=== PATIENT | female | born 1980 | race Caucasian/White ===

== ENCOUNTER 2018-06-04 19:17 | Inpatient (IN) | payer MEDICAID, OTHER ==
[~2018-06-04] VITALS: Ht 167.6 cm; Wt 129.0 kg
[2018-06-04] MEDS ORDERED: ONDANSETRON ODT 4 MG TAB PO ONE (19:45)
[2018-06-04 22:03] LABS: Basophils # (auto) 0 uL; Basophils % (auto) 0.3 % (0.0-2.0); Eosinophils # (auto) 0.3 uL; Eosinophils % (auto) 2.7 % (0.0-7.0); Hemoglobin 12.9 g/dL (12.2-16.2); Lymphocytes # (auto) 3.5 uL; Lymphocytes % (auto) 29.3 % (10.0-50.0); Mean Corpuscular Hemoglobin 32.4 pg (28.0-32.0); Mean Corpuscular Hgb Conc. 33.2 g/dL (32.0-36.0); Mean Corpuscular Volume 97.7 fL (80.0-100.0); Monocytes # (auto) 0.6 uL; Monocytes % (auto) 5.2 % (0.0-12.0); Neutrophils # (auto) 7.5 uL; Neutrophils % (auto) 62.5 % (37.0-80.0); Nucleated Red Blood Cells % 0.1 %; Platelet Count (auto) 329 10^3/uL (140-450); Red Blood Cells 3.99 10^6/uL (4.0-5.20); Red Cell Distribution Width 13.5 % (11.8-14.3)
[2018-06-04 22:23] LABS: Albumin 1.2 g/dL (3.4-5.0); BUN/Creatinine Ratio 10.8; Bilirubin, Total 0.1 mg/dL (0.2-1.0); Calcium 8.1 mg/dL (8.5-10.1); Potassium 3.7 mmol/L (3.5-5.1); Total Protein 5.9 g/dL (6.4-8.2)
[2018-06-05] MEDS ORDERED: ACETAMINOPHEN 325 MG TAB PO PRN (06:15)
[2018-06-05] MEDS ORDERED: NITROGLYCERIN 0.4 MG SL TAB SL PRN (06:15)
[2018-06-05] MEDS ORDERED: cloNIDine HCL 0.1 MG TAB PO PRN (06:15)
[2018-06-05] MEDS ORDERED: MORPHINE SULF INJ 2 MG/ML SYRINGE 1ML IV PRN (06:15)
[2018-06-05] MEDS ORDERED: TEMAZEPAM 15 MG CAP PO PRN (06:15)
[2018-06-05] MEDS ORDERED: ETOD200C27 PO (06:58)
[2018-06-05] MEDS ORDERED: LAMO200T34 PO (06:58)
[2018-06-05] MEDS ORDERED: TOPI100T29 PO (06:58)
[2018-06-05] MEDS: SODIUM CHLORIDE 0.9% 1,000 ML IV SCH ×2 (08:13→20:10)
[2018-06-05] MEDS ORDERED: ENOXAPARIN SOD 120 MG/0.8 ML SYRINGE SC ONE (08:45)
[2018-06-05] MEDS: ONDANSETRON HCL 4 MG/2 ML VIAL IV PRN ×4 (09:34→22:21)
[2018-06-05] MEDS: PANTOPRAZOLE 40 MG TAB PO SCH (09:35)
[2018-06-05] MEDS: lamoTRIgine 100 MG TAB PO SCH ×2 (09:35→22:21)
[2018-06-05 13:00] VITALS: BP_SYST 109; BP_SYST 143; BP_DIAS 69; BP_DIAS 93
[2018-06-05] MEDS: HYDROcodone-ACET 5/325MG TAB PO PRN ×2 (13:39→22:31)
[2018-06-05 15:16] LABS: Urine Bacteria FEW /hpf (None Seen); Urine Blood 2+ /uL (Negative); Urine Hyaline Cast MOD /lpf (0 - 2); Urine Mucus FEW (None Seen); Urine Specific Gravity 1.032 (1.001-1.035); Urine WBC <1 /hpf (0 - 5)
[2018-06-05 15:18] LABS: Amylase 58 U/L (25-115); INR 0.89 (0.9-1.15); Lipase 215 U/L (73-393); Partial Thromboplastin Time 36.6 sec (23.78-33.04); Prothrombin Time 9.6 sec (9.27-12.13)
[2018-06-05 17:00] VITALS: BP 158/81
[2018-06-05] MEDS ORDERED: WARFARIN SODIUM 5 MG TAB PO ONE (17:00)
[2018-06-05 20:00] VITALS: BP 148/78
[2018-06-05 22:00] VITALS: BP 148/78
[2018-06-05] MEDS: TOPIRAMATE 100 MG TAB PO SCH (22:21)
[2018-06-05] MEDS: guaiFENesin 200 MG/10 ML UD PO PRN (23:55)
[2018-06-06] VITALS (7 sets, daily range): BP systolic 131–155; BP diastolic 77–99
[2018-06-06 05:58] LABS: Basophils # (auto) 0 uL; Basophils % (auto) 0.4 % (0.0-2.0); Eosinophils # (auto) 0.4 uL; Eosinophils % (auto) 4.5 % (0.0-7.0); Hematocrit 33.6 % (36.0-46.0); Hemoglobin 11.2 g/dL (12.2-16.2); Lymphocytes # (auto) 2.9 uL; Lymphocytes % (auto) 32.4 % (10.0-50.0); Mean Corpuscular Hemoglobin 32.8 pg (28.0-32.0); Mean Corpuscular Hgb Conc. 33.4 g/dL (32.0-36.0); Mean Corpuscular Volume 98.3 fL (80.0-100.0); Monocytes # (auto) 0.6 uL; Monocytes % (auto) 6.9 % (0.0-12.0); Neutrophils % (auto) 55.8 % (37.0-80.0); Nucleated Red Blood Cells % 0.1 %; Platelet Count (auto) 249 10^3/uL (140-450); Red Blood Cells 3.42 10^6/uL (4.0-5.20); Red Cell Distribution Width 13.7 % (11.8-14.3); White Blood Cell 8.9 10^3/uL (4.4-10.8)
[2018-06-06 06:13] LABS: BUN/Creatinine Ratio 10.1; Bilirubin, Total 0.2 mg/dL (0.2-1.0); Calcium 7.3 mg/dL (8.5-10.1); Potassium 4.1 mmol/L (3.5-5.1); Total Protein 4.8 g/dL (6.4-8.2)
[2018-06-06 06:31] LABS: INR 0.87 (0.9-1.15); Partial Thromboplastin Time 34.3 sec (23.78-33.04); Prothrombin Time 9.4 sec (9.27-12.13)
[2018-06-06] MEDS: SODIUM CHLORIDE 0.9% 1,000 ML IV SCH (09:00)
[2018-06-06] MEDS: PANTOPRAZOLE 40 MG TAB PO SCH (09:37)
[2018-06-06] MEDS: lamoTRIgine 100 MG TAB PO SCH ×2 (09:37→21:57)
[2018-06-06] MEDS: ENOXAPARIN SOD 120 MG/0.8 ML SYRINGE SC SCH (09:39)
[2018-06-06] MEDS: ONDANSETRON HCL 4 MG/2 ML VIAL IV PRN ×4 (09:39→22:27)
[2018-06-06] MEDS: HYDROcodone-ACET 5/325MG TAB PO PRN ×2 (12:50→20:11)
[2018-06-06] MEDS: guaiFENesin 200 MG/10 ML UD PO PRN ×2 (13:49→22:27)
[2018-06-06] MEDS ORDERED: BUMETANIDE (0.25 MG/ML) INJ 10ML IV ONE (14:45)
[2018-06-06 15:56] LABS: Urine Amorphous Crystal MANY /hpf (None Seen); Urine Bacteria FEW /hpf (None Seen); Urine Blood 2+ /uL (Negative); Urine Specific Gravity 1.019 (1.001-1.035); Urine WBC 22 /hpf (0 - 5)
[2018-06-06] MEDS: TOPIRAMATE 100 MG TAB PO SCH (21:57)
[2018-06-07] VITALS (8 sets, daily range): BP systolic 133–148; BP diastolic 75–86
[2018-06-07] MEDS: lamoTRIgine 100 MG TAB PO SCH ×2 (09:20→21:57)
[2018-06-07] MEDS: PANTOPRAZOLE 40 MG TAB PO SCH (09:20)
[2018-06-07] MEDS: ENOXAPARIN SOD 120 MG/0.8 ML SYRINGE SC SCH (09:21)
[2018-06-07] MEDS: HYDROcodone-ACET 5/325MG TAB PO PRN ×2 (09:21→18:54)
[2018-06-07] MEDS: ONDANSETRON HCL 4 MG/2 ML VIAL IV PRN ×3 (09:32→19:30)
[2018-06-07] MEDS: guaiFENesin 200 MG/10 ML UD PO PRN ×2 (09:32→21:59)
[2018-06-07 09:38] LABS: Basophils # (auto) 0 uL; Basophils % (auto) 0.3 % (0.0-2.0); Eosinophils # (auto) 0.4 uL; Eosinophils % (auto) 5.4 % (0.0-7.0); Hematocrit 35.6 % (36.0-46.0); Hemoglobin 11.8 g/dL (12.2-16.2); Lymphocytes # (auto) 2.2 uL; Lymphocytes % (auto) 29.4 % (10.0-50.0); Mean Corpuscular Hemoglobin 32.2 pg (28.0-32.0); Mean Corpuscular Hgb Conc. 33.2 g/dL (32.0-36.0); Mean Corpuscular Volume 97.2 fL (80.0-100.0); Monocytes # (auto) 0.4 uL; Monocytes % (auto) 5.6 % (0.0-12.0); Neutrophils # (auto) 4.5 uL; Neutrophils % (auto) 59.3 % (37.0-80.0); Platelet Count (auto) 273 10^3/uL (140-450); Red Blood Cells 3.66 10^6/uL (4.0-5.20); Red Cell Distribution Width 13.2 % (11.8-14.3); White Blood Cell 7.5 10^3/uL (4.4-10.8)
[2018-06-07 09:44] LABS: Protein, Urine 3538.5 mg/dL (0.0-11.9)
[2018-06-07 09:46] LABS: INR 0.87 (0.9-1.15); Prothrombin Time 9.4 sec (9.27-12.13)
[2018-06-07 09:58] LABS: Alanine Aminotransferase 10 U/L (13-56); Alkaline Phosphatase 79 U/L (45-117); Anion Gap 10 (5-15); Aspartate Aminotransferase 11 U/L (15-37); BUN/Creatinine Ratio 9.4; Bilirubin, Direct < 0.1 mg/dL (0-0.2); Bilirubin, Total 0.1 mg/dL (0.2-1.0); Blood Urea Nitrogen 48 mg/dL (7-18); Calcium 7.5 mg/dL (8.5-10.1); Carbon Dioxide 19 mmol/L (21-32); Chloride 110 mmol/L (98-107); Cholesterol 388 mg/dL (< 200); GFR African American 12 mL/min; GFR Non-African American 10 mL/min; Glucose 72 mg/dL (74-106); HDL Cholesterol 49 mg/dL (40-59); LDL Cholesterol 289 mg/dL (< 100); Phosphorus 5.9 mg/dL (2.5-4.90); Potassium 3.9 mmol/L (3.5-5.1); Sodium 139 mmol/L (136-145); Triglycerides 253 mg/dL (< 150); Uric Acid 6.2 mg/dL (2.6-6.0)
[2018-06-07] MEDS ORDERED: AZITHROMYCIN 250 MG TAB PO ONE (10:00)
[2018-06-07 10:23] LABS: % Iron Saturation 90.3 % (15-50)
[2018-06-07 11:46] LABS: Free T4 (Free Thyroxine) 0.63 ng/dL (0.89-1.76)
[2018-06-07 11:47] LABS: Free T3 1.87 pg/mL (2.3-4.2)
[2018-06-07] MEDS: ALBUTEROL SULF 2.5 MG/0.5ML(0.5%) NEB SOLN NEB SCH ×3 (11:58→23:37)
[2018-06-07] MEDS: ERGOCALCIFEROL 50,000 UNIT(1.25MG) CAP PO SCH (14:48)
[2018-06-07] MEDS: BUMETANIDE INJECTION 12.5 MG in GIVE UN-DILUTED 0 ML IV SCH (15:31)
[2018-06-07] MEDS: ATORVASTATIN 20 MG TAB PO SCH (21:57)
[2018-06-07] MEDS: TOPIRAMATE 100 MG TAB PO SCH (21:57)
[2018-06-08] MEDS: HYDROcodone-ACET 5/325MG TAB PO PRN ×4 (02:14→21:36)
[2018-06-08 04:56] VITALS: BP 126/77
[2018-06-08] MEDS: ALBUTEROL SULF 2.5 MG/0.5ML(0.5%) NEB SOLN NEB SCH ×3 (06:07→19:00)
[2018-06-08] MEDS: LEVOTHYROXINE SODIUM 50 MCG TAB PO SCH (06:42)
[2018-06-08 07:00] LABS: INR 0.87 (0.9-1.15); Partial Thromboplastin Time 33.5 sec (23.78-33.04); Prothrombin Time 9.4 sec (9.27-12.13)
[2018-06-08 07:11] LABS: Bilirubin, Total 0.2 mg/dL (0.2-1.0); Calcium 7.6 mg/dL (8.5-10.1); Total Protein 4.9 g/dL (6.4-8.2)
[2018-06-08 08:00] VITALS: BP 127/76
[2018-06-08 09:12] VITALS: BP 127/76
[2018-06-08] MEDS: PANTOPRAZOLE 40 MG TAB PO SCH (10:00)
[2018-06-08] MEDS ORDERED: ENOXAPARIN SOD 120 MG/0.8 ML SYRINGE SC SCH (10:00)
[2018-06-08] MEDS: lamoTRIgine 100 MG TAB PO SCH ×2 (10:36→21:35)
[2018-06-08] MEDS: AZITHROMYCIN 250 MG TAB PO SCH (10:36)
[2018-06-08 12:54] VITALS: BP 126/71
[2018-06-08] MEDS: ONDANSETRON HCL 4 MG/2 ML VIAL IV PRN ×2 (13:01→18:34)
[2018-06-08] MEDS ORDERED: methylPREDNISolone SOD SUCC 1,000 MG in SODIUM CHL 0.9% 250 ML IV ONE (13:15)
[2018-06-08] MEDS ORDERED: MIDAZOLAM HCL 1MG/1ML-2 ML VIAL ONE (13:49)
[2018-06-08] MEDS ORDERED: fentaNYL CITRATE 100 MCG/2 ML VL ONE (13:49)
[2018-06-08] MEDS: BUMETANIDE INJECTION 12.5 MG in GIVE UN-DILUTED 0 ML IV SCH (14:43)
[2018-06-08 16:36] VITALS: BP 135/76
[2018-06-08 21:30] VITALS: BP 149/83
[2018-06-08] MEDS: TOPIRAMATE 100 MG TAB PO SCH (21:35)
[2018-06-08] MEDS: ATORVASTATIN 20 MG TAB PO SCH (21:35)
[2018-06-09] MEDS: ALBUTEROL SULF 2.5 MG/0.5ML(0.5%) NEB SOLN NEB SCH ×5 (01:05→23:33)
[2018-06-09] MEDS: HYDROcodone-ACET 5/325MG TAB PO PRN ×4 (01:43→23:03)
[2018-06-09 04:55] VITALS: BP 128/76
[2018-06-09 06:04] LABS: INR 0.84 (0.9-1.15); Partial Thromboplastin Time 30.7 sec (23.78-33.04); Prothrombin Time 9.1 sec (9.27-12.13)
[2018-06-09 06:12] LABS: Calcium 7.9 mg/dL (8.5-10.1); Potassium 4.9 mmol/L (3.5-5.1)
[2018-06-09] MEDS: LEVOTHYROXINE SODIUM 50 MCG TAB PO SCH (06:37)
[2018-06-09 09:00] VITALS: BP 134/71
[2018-06-09] MEDS: PANTOPRAZOLE 40 MG TAB PO SCH (09:43)
[2018-06-09] MEDS: lamoTRIgine 100 MG TAB PO SCH ×2 (09:43→21:38)
[2018-06-09] MEDS: AZITHROMYCIN 250 MG TAB PO SCH (09:43)
[2018-06-09 10:44] LABS: Hematocrit 37.2 % (36.0-46.0); Hemoglobin 11.9 g/dL (12.2-16.2); Mean Corpuscular Hemoglobin 31.3 pg (28.0-32.0); Mean Corpuscular Hgb Conc. 31.9 g/dL (32.0-36.0); Mean Corpuscular Volume 98.4 fL (80.0-100.0); Platelet Count (auto) 301 10^3/uL (140-450); Red Blood Cells 3.79 10^6/uL (4.0-5.20); Red Cell Distribution Width 13.3 % (11.8-14.3); White Blood Cell 12.8 10^3/uL (4.4-10.8)
[2018-06-09 11:04] LABS: Basophils % (manual) 0 (0.0-2.0); Blast Cells 0; Eosinophils % (manual) 0 (0-7); Metamyelocytes % 0; Myelocytes % 0; Promyelocytes % 0; Reactive Lymphocytes 0
[2018-06-09 11:23] LABS: Band Neutrophils % (manual) 3; Lymphocytes % (manual) 6 (10.0-50.0); Monocytes % (manual) 2 (0-12)
[2018-06-09] MEDS ORDERED: diphenhdrAMINE HCL 50 MG/1 ML VL IV PRN (11:45)
[2018-06-09 12:52] VITALS: BP 144/85
[2018-06-09] MEDS ORDERED: methylPREDNISolone SOD SUCC 1,000 MG in SODIUM CHL 0.9% 250 ML IV ONE (15:00)
[2018-06-09 17:00] VITALS: BP 150/85
[2018-06-09 20:00] VITALS: BP 145/82
[2018-06-09] MEDS: TOPIRAMATE 100 MG TAB PO SCH (21:39)
[2018-06-09] MEDS: ATORVASTATIN 20 MG TAB PO SCH (21:39)
[2018-06-09 22:30] VITALS: BP 145/82
[2018-06-09] MEDS: ONDANSETRON HCL 4 MG/2 ML VIAL IV PRN (23:03)
[2018-06-10] VITALS (8 sets, daily range): BP systolic 126–191; BP diastolic 59–92
[2018-06-10 05:42] LABS: BUN/Creatinine Ratio 11.4; Potassium 5.2 mmol/L (3.5-5.1)
[2018-06-10] MEDS: ALBUTEROL SULF 2.5 MG/0.5ML(0.5%) NEB SOLN NEB SCH ×3 (06:42→18:55)
[2018-06-10] MEDS: LEVOTHYROXINE SODIUM 50 MCG TAB PO SCH (06:43)
[2018-06-10] MEDS: lamoTRIgine 100 MG TAB PO SCH ×2 (09:26→22:18)
[2018-06-10] MEDS: PANTOPRAZOLE 40 MG TAB PO SCH (09:27)
[2018-06-10] MEDS: AZITHROMYCIN 250 MG TAB PO SCH (09:27)
[2018-06-10] MEDS ORDERED: ENOXAPARIN SOD 120 MG/0.8 ML SYRINGE SC SCH (10:00)
[2018-06-10] MEDS ORDERED: fentaNYL CITRATE 100 MCG/2 ML VL ONE (11:35)
[2018-06-10] MEDS ORDERED: MIDAZOLAM HCL 1MG/1ML-2 ML VIAL ONE (11:35)
[2018-06-10] MEDS ORDERED: LIDOCAINE 2%HCL (LOCAL ANESTH.) INJ 10ml MDV ONE ×2 (11:36→12:16)
[2018-06-10] MEDS ORDERED: HEPARIN SODIUM (PORCINE) 5000 UNITS/ML 1ML VIAL ONE (12:22)
[2018-06-10] MEDS: HYDROcodone-ACET 5/325MG TAB PO PRN ×2 (13:32→19:49)
[2018-06-10] MEDS: ATORVASTATIN 20 MG TAB PO SCH (22:18)
[2018-06-10] MEDS: TOPIRAMATE 100 MG TAB PO SCH (22:19)
[2018-06-11] MEDS: ALBUTEROL SULF 2.5 MG/0.5ML(0.5%) NEB SOLN NEB SCH ×4 (00:55→18:53)
[2018-06-11 00:56] VITALS: BP 145/92
[2018-06-11] MEDS: HYDROcodone-ACET 5/325MG TAB PO PRN ×2 (01:51→06:30)
[2018-06-11 04:48] VITALS: BP 120/68
[2018-06-11 06:14] LABS: BUN/Creatinine Ratio 10.7; Calcium 7.3 mg/dL (8.5-10.1); Potassium 4.3 mmol/L (3.5-5.1)
[2018-06-11] MEDS: LEVOTHYROXINE SODIUM 50 MCG TAB PO SCH (06:29)
[2018-06-11 08:59] VITALS: BP 121/73
[2018-06-11] MEDS: lamoTRIgine 100 MG TAB PO SCH ×2 (09:19→21:07)
[2018-06-11] MEDS: PANTOPRAZOLE 40 MG TAB PO SCH (09:20)
[2018-06-11] MEDS: ONDANSETRON HCL 4 MG/2 ML VIAL IV PRN ×2 (09:38→14:06)
[2018-06-11] MEDS ORDERED: AZITHROMYCIN 250 MG TAB PO SCH (10:00)
[2018-06-11] MEDS ORDERED: HEPARIN SODIUM (PORCINE) 5000 UNITS/ML 1ML VIAL IV ONE (11:15)
[2018-06-11 12:15] LABS: Basophils # (auto) 0 uL; Basophils % (auto) 0.1 % (0.0-2.0); Eosinophils # (auto) 0 uL; Eosinophils % (auto) 0.3 % (0.0-7.0); Hematocrit 37.2 % (36.0-46.0); Hemoglobin 12.3 g/dL (12.2-16.2); Lymphocytes # (auto) 4.7 uL; Lymphocytes % (auto) 33.7 % (10.0-50.0); Mean Corpuscular Hemoglobin 31.5 pg (28.0-32.0); Mean Corpuscular Hgb Conc. 33.1 g/dL (32.0-36.0); Mean Corpuscular Volume 95.2 fL (80.0-100.0); Monocytes # (auto) 1.3 uL; Monocytes % (auto) 8.9 % (0.0-12.0); Platelet Count (auto) 339 10^3/uL (140-450); Red Blood Cells 3.91 10^6/uL (4.0-5.20); Red Cell Distribution Width 13.2 % (11.8-14.3)
[2018-06-11 12:35] LABS: INR 0.88 (0.9-1.15); Partial Thromboplastin Time 26.8 sec (23.78-33.04); Prothrombin Time 9.5 sec (9.27-12.13)
[2018-06-11 13:00] VITALS: BP 119/68
[2018-06-11] MEDS: HEPARIN DRIP/D5W 100UNITS/ML 250 ML IV SCH (13:59)
[2018-06-11 17:00] VITALS: BP 121/71
[2018-06-11] MEDS ORDERED: WARFARIN SODIUM 10 MG TAB PO ONE (18:15)
[2018-06-11] MEDS: ATORVASTATIN 20 MG TAB PO SCH (21:07)
[2018-06-11] MEDS: TOPIRAMATE 100 MG TAB PO SCH (21:08)
[2018-06-11 22:00] VITALS: BP 138/77
[2018-06-12] MEDS: ALBUTEROL SULF 2.5 MG/0.5ML(0.5%) NEB SOLN NEB SCH ×5 (00:23→23:47)
[2018-06-12] MEDS: HEPARIN DRIP/D5W 100UNITS/ML 250 ML IV SCH ×3 (03:05→23:38)
[2018-06-12 03:35] LABS: INR 0.93 (0.9-1.15)
[2018-06-12 03:39] LABS: Partial Thromboplastin Time 78.8 sec (23.78-33.04)
[2018-06-12] MEDS: ONDANSETRON HCL 4 MG/2 ML VIAL IV PRN ×2 (04:49→10:33)
[2018-06-12 05:00] VITALS: BP 128/70
[2018-06-12] MEDS: LEVOTHYROXINE SODIUM 50 MCG TAB PO SCH (06:21)
[2018-06-12 08:25] VITALS: BP 125/72
[2018-06-12 08:53] LABS: Basophils # (auto) 0 uL; Basophils % (auto) 0.2 % (0.0-2.0); Eosinophils # (auto) 0.1 uL; Eosinophils % (auto) 1.3 % (0.0-7.0); Hematocrit 31.2 % (36.0-46.0); Hemoglobin 10.6 g/dL (12.2-16.2); Lymphocytes % (auto) 36.1 % (10.0-50.0); Mean Corpuscular Hemoglobin 32.7 pg (28.0-32.0); Mean Corpuscular Volume 96.4 fL (80.0-100.0); Monocytes # (auto) 0.9 uL; Monocytes % (auto) 8.3 % (0.0-12.0); Neutrophils % (auto) 54.1 % (37.0-80.0); Nucleated Red Blood Cells % 0.1 %; Platelet Count (auto) 219 10^3/uL (140-450); Red Blood Cells 3.24 10^6/uL (4.0-5.20); Red Cell Distribution Width 13.5 % (11.8-14.3)
[2018-06-12 09:03] LABS: BUN/Creatinine Ratio 9.8; Calcium 7.5 mg/dL (8.5-10.1); Potassium 3.7 mmol/L (3.5-5.1)
[2018-06-12 09:13] LABS: INR 0.98 (0.9-1.15); Prothrombin Time 10.5 sec (9.27-12.13)
[2018-06-12] MEDS: lamoTRIgine 100 MG TAB PO SCH ×2 (09:48→21:24)
[2018-06-12] MEDS: FUROSEMIDE 40 MG TAB PO SCH (09:48)
[2018-06-12] MEDS: predniSONE 20 MG TAB PO SCH (09:49)
[2018-06-12] MEDS: PANTOPRAZOLE 40 MG TAB PO SCH (09:49)
[2018-06-12] MEDS: HYDROcodone-ACET 5/325MG TAB PO PRN (12:03)
[2018-06-12 12:30] VITALS: BP 123/73
[2018-06-12 16:39] VITALS: BP 133/87
[2018-06-12] MEDS ORDERED: WARFARIN SODIUM 10 MG TAB PO ONE (17:00)
[2018-06-12] MEDS: ATORVASTATIN 20 MG TAB PO SCH (21:24)
[2018-06-12] MEDS: TOPIRAMATE 100 MG TAB PO SCH (21:25)
[2018-06-12 22:00] VITALS: BP 149/81
[2018-06-13] VITALS (7 sets, daily range): BP systolic 127–148; BP diastolic 71–95
[2018-06-13 05:17] LABS: Basophils # (auto) 0 uL; Basophils % (auto) 0.1 % (0.0-2.0); Eosinophils # (auto) 0 uL; Eosinophils % (auto) 0.1 % (0.0-7.0); Hematocrit 28.8 % (36.0-46.0); Hemoglobin 9.7 g/dL (12.2-16.2); Lymphocytes # (auto) 2.2 uL; Lymphocytes % (auto) 16.9 % (10.0-50.0); Mean Corpuscular Hemoglobin 32.5 pg (28.0-32.0); Mean Corpuscular Hgb Conc. 33.8 g/dL (32.0-36.0); Mean Corpuscular Volume 96.2 fL (80.0-100.0); Monocytes % (auto) 7.7 % (0.0-12.0); Neutrophils # (auto) 9.7 uL; Neutrophils % (auto) 75.2 % (37.0-80.0); Platelet Count (auto) 200 10^3/uL (140-450); Red Cell Distribution Width 13.1 % (11.8-14.3); White Blood Cell 12.9 10^3/uL (4.4-10.8)
[2018-06-13 05:35] LABS: Albumin 0.9 g/dL (3.4-5.0); Anion Gap 9 (5-15); Calcium 7.3 mg/dL (8.5-10.1); Carbon Dioxide 24 mmol/L (21-32); Chloride 104 mmol/L (98-107); Glucose 125 mg/dL (74-106); Sodium 137 mmol/L (136-145)
[2018-06-13 05:40] LABS: INR 1.27 (0.9-1.15); Prothrombin Time 13.4 sec (9.27-12.13)
[2018-06-13 05:41] LABS: Alanine Aminotransferase 18 U/L (13-56); Alkaline Phosphatase 60 U/L (45-117); Aspartate Aminotransferase 9 U/L (15-37); BUN/Creatinine Ratio 10.3; Bilirubin, Total < 0.1 mg/dL (0.2-1.0); Blood Urea Nitrogen 53 mg/dL (7-18); GFR African American 12 mL/min; GFR Non-African American 10 mL/min; Total Protein 4.4 g/dL (6.4-8.2)
[2018-06-13] MEDS: HEPARIN DRIP/D5W 100UNITS/ML 250 ML IV SCH (05:45)
[2018-06-13 05:47] LABS: Partial Thromboplastin Time 79.4 sec (23.78-33.04)
[2018-06-13] MEDS: LEVOTHYROXINE SODIUM 50 MCG TAB PO SCH (06:41)
[2018-06-13] MEDS: ALBUTEROL SULF 2.5 MG/0.5ML(0.5%) NEB SOLN NEB SCH ×3 (07:03→18:36)
[2018-06-13] MEDS ORDERED: SODIUM CHL 0.9% 1000 ML BAG XX ONE (07:15)
[2018-06-13] MEDS ORDERED: EPOETIN ALFA 10,000 UNIT/1 ML VIAL IV ONE (07:15)
[2018-06-13] MEDS: HYDROcodone-ACET 5/325MG TAB PO PRN (07:44)
[2018-06-13 12:20] LABS: INR 1.4 (0.9-1.15); Partial Thromboplastin Time 63.3 sec (23.78-33.04); Prothrombin Time 14.7 sec (9.27-12.13)
[2018-06-13] MEDS: predniSONE 20 MG TAB PO SCH (12:54)
[2018-06-13] MEDS: lamoTRIgine 100 MG TAB PO SCH ×2 (12:54→21:10)
[2018-06-13] MEDS: FUROSEMIDE 40 MG TAB PO SCH (12:55)
[2018-06-13] MEDS: PANTOPRAZOLE 40 MG TAB PO SCH (12:55)
[2018-06-13] MEDS ORDERED: WARFARIN SODIUM 10 MG TAB PO ONE (17:00)
[2018-06-13] MEDS: TOPIRAMATE 100 MG TAB PO SCH (21:09)
[2018-06-13] MEDS: ATORVASTATIN 20 MG TAB PO SCH (21:09)
[2018-06-14] MEDS: ALBUTEROL SULF 2.5 MG/0.5ML(0.5%) NEB SOLN NEB SCH ×4 (00:24→18:11)
[2018-06-14 01:16] LABS: INR 1.72 (0.9-1.15); Partial Thromboplastin Time 58.8 sec (23.78-33.04); Prothrombin Time 17.8 sec (9.27-12.13)
[2018-06-14] MEDS: HEPARIN DRIP/D5W 100UNITS/ML 250 ML IV SCH ×2 (02:35→07:30)
[2018-06-14 04:51] VITALS: BP 150/87
[2018-06-14 06:32] LABS: Hematocrit 31.3 % (36.0-46.0); Hemoglobin 10.6 g/dL (12.2-16.2); Mean Corpuscular Hemoglobin 32.4 pg (28.0-32.0); Mean Corpuscular Hgb Conc. 33.8 g/dL (32.0-36.0); Mean Corpuscular Volume 95.7 fL (80.0-100.0); Platelet Count (auto) 227 10^3/uL (140-450); Red Blood Cells 3.27 10^6/uL (4.0-5.20); Red Cell Distribution Width 13.2 % (11.8-14.3)
[2018-06-14] MEDS: LEVOTHYROXINE SODIUM 50 MCG TAB PO SCH (06:36)
[2018-06-14 06:46] LABS: Basophils % (manual) 0 (0.0-2.0); Blast Cells 0; Eosinophils % (manual) 0 (0-7); Metamyelocytes % 0; Myelocytes % 0; Promyelocytes % 0; Reactive Lymphocytes 0
[2018-06-14 07:45] LABS: Prothrombin Time 20.6 sec (9.27-12.13)
[2018-06-14 07:50] LABS: Partial Thromboplastin Time 76.6 sec (23.78-33.04)
[2018-06-14 08:00] VITALS: BP 127/72
[2018-06-14] MEDS ORDERED: SODIUM CHL 0.9% 1000 ML BAG XX ONE (08:00)
[2018-06-14 08:27] LABS: Band Neutrophils % (manual) 1; Lymphocytes % (manual) 15 (10.0-50.0); Monocytes % (manual) 4 (0-12)
[2018-06-14 09:00] VITALS: BP 133/68
[2018-06-14] MEDS: METOCLOPRAMIDE HCL 5MG/ml INJ 2ml VIAL IV PRN ×2 (10:03→18:42)
[2018-06-14] MEDS: lamoTRIgine 100 MG TAB PO SCH ×2 (10:05→21:19)
[2018-06-14] MEDS: predniSONE 20 MG TAB PO SCH (10:05)
[2018-06-14] MEDS: PANTOPRAZOLE 40 MG TAB PO SCH (10:06)
[2018-06-14] MEDS: FUROSEMIDE 40 MG TAB PO SCH (10:07)
[2018-06-14 13:00] VITALS: BP 148/77
[2018-06-14] MEDS: ERGOCALCIFEROL 50,000 UNIT(1.25MG) CAP PO SCH (13:14)
[2018-06-14 13:22] LABS: INR 2.07 (0.9-1.15); Partial Thromboplastin Time 59.1 sec (23.78-33.04); Prothrombin Time 21.3 sec (9.27-12.13)
[2018-06-14 16:27] VITALS: BP 136/81
[2018-06-14] MEDS ORDERED: WARFARIN SODIUM 5 MG TAB PO ONE (17:00)
[2018-06-14] MEDS: HYDROcodone-ACET 5/325MG TAB PO PRN ×2 (17:07→21:20)
[2018-06-14] MEDS: Pro-Stat SF 30ml Vanilla PO SCH (18:00)
[2018-06-14 19:19] LABS: INR 1.85 (0.9-1.15); Partial Thromboplastin Time 60.6 sec (23.78-33.04); Prothrombin Time 19.1 sec (9.27-12.13)
[2018-06-14] MEDS: ATORVASTATIN 20 MG TAB PO SCH (21:19)
[2018-06-14] MEDS: TOPIRAMATE 100 MG TAB PO SCH (21:20)
[2018-06-14 22:00] VITALS: BP 138/89
[2018-06-15] MEDS: ALBUTEROL SULF 2.5 MG/0.5ML(0.5%) NEB SOLN NEB SCH ×4 (00:05→18:58)
[2018-06-15 01:01] LABS: INR 1.95 (0.9-1.15); Partial Thromboplastin Time 57.2 sec (23.78-33.04); Prothrombin Time 20.1 sec (9.27-12.13)
[2018-06-15 05:00] VITALS: BP 124/71
[2018-06-15 06:30] LABS: Hematocrit 30.5 % (36.0-46.0); Hemoglobin 10.3 g/dL (12.2-16.2); Mean Corpuscular Hemoglobin 32.6 pg (28.0-32.0); Mean Corpuscular Hgb Conc. 33.7 g/dL (32.0-36.0); Mean Corpuscular Volume 96.7 fL (80.0-100.0); Platelet Count (auto) 228 10^3/uL (140-450); Red Blood Cells 3.15 10^6/uL (4.0-5.20); Red Cell Distribution Width 13.5 % (11.8-14.3); White Blood Cell 17.8 10^3/uL (4.4-10.8)
[2018-06-15 06:41] LABS: INR 1.99 (0.9-1.15); Prothrombin Time 20.5 sec (9.27-12.13)
[2018-06-15 06:44] LABS: Basophils % (manual) 0 (0.0-2.0); Blast Cells 0; Metamyelocytes % 0; Myelocytes % 0; Promyelocytes % 0; Reactive Lymphocytes 0
[2018-06-15] MEDS: LEVOTHYROXINE SODIUM 50 MCG TAB PO SCH (06:47)
[2018-06-15 06:48] LABS: Calcium 7.4 mg/dL (8.5-10.1); Potassium 3.3 mmol/L (3.5-5.1)
[2018-06-15 07:40] LABS: Band Neutrophils % (manual) 2; Eosinophils % (manual) 1 (0-7); Lymphocytes % (manual) 23 (10.0-50.0); Monocytes % (manual) 5 (0-12)
[2018-06-15 08:07] VITALS: BP 130/71
[2018-06-15] MEDS ORDERED: SODIUM CHL 0.9% 1000 ML BAG XX ONE (08:15)
[2018-06-15] MEDS: Pro-Stat SF 30ml Vanilla PO SCH ×3 (09:33→17:58)
[2018-06-15] MEDS: FUROSEMIDE 40 MG TAB PO SCH (10:55)
[2018-06-15] MEDS: lamoTRIgine 100 MG TAB PO SCH ×2 (10:56→21:14)
[2018-06-15] MEDS: predniSONE 20 MG TAB PO SCH (10:57)
[2018-06-15] MEDS: PANTOPRAZOLE 40 MG TAB PO SCH (10:57)
[2018-06-15] MEDS ORDERED: POTASSIUM CHL 20 Meq TABLET PO ONE (11:00)
[2018-06-15 12:33] VITALS: BP 147/76
[2018-06-15] MEDS: METOCLOPRAMIDE HCL 5MG/ml INJ 2ml VIAL IV PRN (16:33)
[2018-06-15 16:47] VITALS: BP 132/99
[2018-06-15] MEDS ORDERED: WARFARIN SODIUM 2 MG TAB PO ONE (17:00)
[2018-06-15] MEDS: HYDROcodone-ACET 5/325MG TAB PO PRN (17:55)
[2018-06-15] MEDS: HEPARIN DRIP/D5W 100UNITS/ML 250 ML IV SCH (20:15)
[2018-06-15] MEDS: TOPIRAMATE 100 MG TAB PO SCH (21:14)
[2018-06-15] MEDS: ATORVASTATIN 20 MG TAB PO SCH (21:14)
[2018-06-15 22:25] VITALS: BP 134/84
[2018-06-16] VITALS (7 sets, daily range): BP systolic 112–170; BP diastolic 72–96
[2018-06-16] MEDS: ALBUTEROL SULF 2.5 MG/0.5ML(0.5%) NEB SOLN NEB SCH ×2 (00:27→06:26)
[2018-06-16] MEDS ORDERED: SODIUM CHLORIDE 0.9 % NEB SOLN 3ML NEB ONE (05:36)
[2018-06-16 05:39] LABS: Basophils # (auto) 0 uL; Basophils % (auto) 0.1 % (0.0-2.0); Eosinophils # (auto) 0 uL; Hematocrit 32.3 % (36.0-46.0); Lymphocytes # (auto) 3.5 uL; Lymphocytes % (auto) 19.4 % (10.0-50.0); Mean Corpuscular Hemoglobin 32.8 pg (28.0-32.0); Mean Corpuscular Hgb Conc. 34.1 g/dL (32.0-36.0); Mean Corpuscular Volume 96.4 fL (80.0-100.0); Monocytes # (auto) 1.1 uL; Monocytes % (auto) 6.1 % (0.0-12.0); Neutrophils # (auto) 13.3 uL; Neutrophils % (auto) 74.4 % (37.0-80.0); Nucleated Red Blood Cells % 0.1 %; Platelet Count (auto) 252 10^3/uL (140-450); Red Blood Cells 3.35 10^6/uL (4.0-5.20); Red Cell Distribution Width 13.5 % (11.8-14.3); White Blood Cell 17.8 10^3/uL (4.4-10.8)
[2018-06-16 05:52] LABS: INR 1.75 (0.9-1.15); Prothrombin Time 18.1 sec (9.27-12.13)
[2018-06-16] MEDS: LEVOTHYROXINE SODIUM 50 MCG TAB PO SCH (06:35)
[2018-06-16] MEDS: FUROSEMIDE 40 MG TAB PO SCH (09:23)
[2018-06-16] MEDS: predniSONE 20 MG TAB PO SCH (09:24)
[2018-06-16] MEDS: PANTOPRAZOLE 40 MG TAB PO SCH (09:24)
[2018-06-16] MEDS: lamoTRIgine 100 MG TAB PO SCH ×2 (09:24→21:20)
[2018-06-16] MEDS: Pro-Stat SF 30ml Vanilla PO SCH ×3 (09:24→18:00)
[2018-06-16] MEDS ORDERED: HYDROcodone-ACET 5/325MG TAB PO PRN (11:00)
[2018-06-16] MEDS ORDERED: TEMAZEPAM 15 MG CAP PO PRN (11:00)
[2018-06-16] MEDS ORDERED: POTASSIUM CHL 20 Meq TABLET PO ONE (11:00)
[2018-06-16] MEDS: METOCLOPRAMIDE HCL 5MG/ml INJ 2ml VIAL IV PRN (13:06)
[2018-06-16] MEDS ORDERED: SODIUM CHL 0.9% 1000 ML BAG XX ONE (14:15)
[2018-06-16] MEDS: HEPARIN DRIP/D5W 100UNITS/ML 250 ML IV SCH (14:18)
[2018-06-16] MEDS ORDERED: WARFARIN SODIUM 5 MG TAB PO ONE (17:00)
[2018-06-16] MEDS ORDERED: WARFARIN SODIUM 2 MG TAB PO ONE (17:00)
[2018-06-16] MEDS: ATORVASTATIN 20 MG TAB PO SCH (21:20)
[2018-06-16] MEDS: TOPIRAMATE 100 MG TAB PO SCH (21:21)
[2018-06-17] MEDS: METOCLOPRAMIDE HCL 5MG/ml INJ 2ml VIAL IV PRN ×2 (00:21→12:49)
[2018-06-17 04:43] VITALS: BP 133/91
[2018-06-17 06:26] LABS: Hematocrit 33.3 % (36.0-46.0); Hemoglobin 11.1 g/dL (12.2-16.2); Mean Corpuscular Hemoglobin 32.2 pg (28.0-32.0); Mean Corpuscular Hgb Conc. 33.3 g/dL (32.0-36.0); Mean Corpuscular Volume 96.6 fL (80.0-100.0); Platelet Count (auto) 310 10^3/uL (140-450); Red Blood Cells 3.45 10^6/uL (4.0-5.20); Red Cell Distribution Width 13.5 % (11.8-14.3); White Blood Cell 21.7 10^3/uL (4.4-10.8)
[2018-06-17] MEDS: LEVOTHYROXINE SODIUM 50 MCG TAB PO SCH (06:28)
[2018-06-17 06:36] LABS: Band Neutrophils % (manual) 0; Basophils % (manual) 0 (0.0-2.0); Blast Cells 0; Eosinophils % (manual) 0 (0-7); Metamyelocytes % 0; Myelocytes % 0; Promyelocytes % 0; Reactive Lymphocytes 0
[2018-06-17 06:39] LABS: INR 1.82 (0.9-1.15); Partial Thromboplastin Time 53.9 sec (23.78-33.04); Prothrombin Time 18.8 sec (9.27-12.13)
[2018-06-17 06:52] LABS: Lymphocytes % (manual) 24 (10.0-50.0); Monocytes % (manual) 2 (0-12)
[2018-06-17 06:54] LABS: Calcium 7.7 mg/dL (8.5-10.1); Potassium 3.5 mmol/L (3.5-5.1)
[2018-06-17 06:59] LABS: BUN/Creatinine Ratio 13.6
[2018-06-17 08:00] VITALS: BP 140/75
[2018-06-17] MEDS ORDERED: cloNIDine HCL 0.1 MG TAB PO PRN (10:00)
[2018-06-17] MEDS ORDERED: ACETAMINOPHEN 325 MG TAB PO PRN (10:00)
[2018-06-17] MEDS: predniSONE 20 MG TAB PO SCH (10:29)
[2018-06-17] MEDS: PANTOPRAZOLE 40 MG TAB PO SCH (10:30)
[2018-06-17] MEDS: FUROSEMIDE 40 MG TAB PO SCH (10:30)
[2018-06-17] MEDS: lamoTRIgine 100 MG TAB PO SCH ×2 (10:30→21:10)
[2018-06-17] MEDS: Pro-Stat SF 30ml Vanilla PO SCH ×3 (10:33→19:26)
[2018-06-17 12:00] VITALS: BP 122/71
[2018-06-17] MEDS: HEPARIN DRIP/D5W 100UNITS/ML 250 ML IV SCH (14:10)
[2018-06-17 16:00] VITALS: BP 132/74
[2018-06-17] MEDS ORDERED: WARFARIN SODIUM 2.5 MG TAB PO ONE (17:00)
[2018-06-17] MEDS: ATORVASTATIN 20 MG TAB PO SCH (21:10)
[2018-06-17] MEDS: TOPIRAMATE 100 MG TAB PO SCH (21:10)
[2018-06-17 22:00] VITALS: BP 137/92
[2018-06-18 05:00] VITALS: BP 136/81
[2018-06-18 05:43] LABS: Basophils # (auto) 0 uL; Basophils % (auto) 0.1 % (0.0-2.0); Eosinophils # (auto) 0 uL; Hematocrit 31.2 % (36.0-46.0); Hemoglobin 10.6 g/dL (12.2-16.2); Lymphocytes # (auto) 2.6 uL; Lymphocytes % (auto) 15.3 % (10.0-50.0); Mean Corpuscular Hemoglobin 32.9 pg (28.0-32.0); Mean Corpuscular Volume 96.8 fL (80.0-100.0); Monocytes # (auto) 1.2 uL; Monocytes % (auto) 7.2 % (0.0-12.0); Neutrophils # (auto) 13.4 uL; Neutrophils % (auto) 77.4 % (37.0-80.0); Platelet Count (auto) 289 10^3/uL (140-450); Red Blood Cells 3.22 10^6/uL (4.0-5.20); Red Cell Distribution Width 13.3 % (11.8-14.3); White Blood Cell 17.3 10^3/uL (4.4-10.8)
[2018-06-18 05:51] LABS: Albumin 0.9 g/dL (3.4-5.0); BUN/Creatinine Ratio 16.3; Calcium 7.3 mg/dL (8.5-10.1); Potassium 3.4 mmol/L (3.5-5.1)
[2018-06-18 05:54] LABS: Bilirubin, Total 0.1 mg/dL (0.2-1.0); Total Protein 4.2 g/dL (6.4-8.2)
[2018-06-18 05:56] LABS: Partial Thromboplastin Time 36.5 sec (23.78-33.04); Prothrombin Time 20.6 sec (9.27-12.13)
[2018-06-18] MEDS: LEVOTHYROXINE SODIUM 50 MCG TAB PO SCH (06:38)
[2018-06-18 07:45] VITALS: BP 136/81
[2018-06-18] MEDS: Pro-Stat SF 30ml Vanilla PO SCH ×3 (08:00→18:00)
[2018-06-18] MEDS ORDERED: SODIUM CHL 0.9% 1000 ML BAG XX ONE (08:45)
[2018-06-18 09:00] VITALS: BP 132/67
[2018-06-18] MEDS: METOCLOPRAMIDE HCL 5MG/ml INJ 2ml VIAL IV PRN (09:32)
[2018-06-18 13:00] VITALS: BP 117/83
[2018-06-18] MEDS: predniSONE 20 MG TAB PO SCH (13:12)
[2018-06-18] MEDS: PANTOPRAZOLE 40 MG TAB PO SCH (13:12)
[2018-06-18] MEDS: lamoTRIgine 100 MG TAB PO SCH ×2 (13:13→21:07)
[2018-06-18] MEDS: FUROSEMIDE 40 MG TAB PO SCH (13:14)
[2018-06-18 17:00] VITALS: BP 111/74
[2018-06-18] MEDS ORDERED: WARFARIN SODIUM 2.5 MG TAB PO ONE (17:00)
[2018-06-18] MEDS: TOPIRAMATE 100 MG TAB PO SCH (21:07)
[2018-06-18] MEDS: ATORVASTATIN 20 MG TAB PO SCH (21:07)
[2018-06-18 22:00] VITALS: BP 135/81
[2018-06-19 05:00] VITALS: BP 122/72
[2018-06-19 06:20] LABS: Basophils # (auto) 0 uL; Basophils % (auto) 0.1 % (0.0-2.0); Eosinophils # (auto) 0 uL; Hematocrit 30.5 % (36.0-46.0); Hemoglobin 10.3 g/dL (12.2-16.2); Lymphocytes # (auto) 3.1 uL; Lymphocytes % (auto) 18.3 % (10.0-50.0); Mean Corpuscular Hemoglobin 32.4 pg (28.0-32.0); Mean Corpuscular Hgb Conc. 33.8 g/dL (32.0-36.0); Mean Corpuscular Volume 95.8 fL (80.0-100.0); Monocytes # (auto) 1.3 uL; Neutrophils # (auto) 12.4 uL; Neutrophils % (auto) 73.6 % (37.0-80.0); Nucleated Red Blood Cells % 0.1 %; Platelet Count (auto) 278 10^3/uL (140-450); Red Blood Cells 3.19 10^6/uL (4.0-5.20); Red Cell Distribution Width 13.3 % (11.8-14.3); White Blood Cell 16.9 10^3/uL (4.4-10.8)
[2018-06-19 06:31] LABS: INR 1.77 (0.9-1.15); Partial Thromboplastin Time 33.9 sec (23.78-33.04); Prothrombin Time 18.3 sec (9.27-12.13)
[2018-06-19] MEDS: LEVOTHYROXINE SODIUM 50 MCG TAB PO SCH (06:34)
[2018-06-19 07:50] VITALS: BP 122/72
[2018-06-19] MEDS: Pro-Stat SF 30ml Vanilla PO SCH ×3 (08:00→18:00)
[2018-06-19 09:00] VITALS: BP 136/78
[2018-06-19] MEDS: METOCLOPRAMIDE HCL 5MG/ml INJ 2ml VIAL IV PRN ×2 (09:59→20:21)
[2018-06-19] MEDS: predniSONE 20 MG TAB PO SCH (09:59)
[2018-06-19] MEDS: PANTOPRAZOLE 40 MG TAB PO SCH (10:00)
[2018-06-19] MEDS: FUROSEMIDE 40 MG TAB PO SCH (10:00)
[2018-06-19] MEDS: lamoTRIgine 100 MG TAB PO SCH ×2 (10:01→22:10)
[2018-06-19 12:38] VITALS: BP 125/75
[2018-06-19] MEDS ORDERED: WARFARIN SODIUM 2 MG TAB PO ONE (17:00)
[2018-06-19 17:11] VITALS: BP 132/73
[2018-06-19 21:48] VITALS: BP 135/74
[2018-06-19] MEDS: ATORVASTATIN 20 MG TAB PO SCH (22:09)
[2018-06-19] MEDS: TOPIRAMATE 100 MG TAB PO SCH (22:10)
[2018-06-20] VITALS (7 sets, daily range): BP systolic 107–136; BP diastolic 69–81
[2018-06-20 06:53] LABS: Albumin 0.9 g/dL (3.4-5.0); BUN/Creatinine Ratio 15.6; Bilirubin, Total 0.1 mg/dL (0.2-1.0); Calcium 7.1 mg/dL (8.5-10.1); Phosphorus 5.1 mg/dL (2.5-4.90)
[2018-06-20] MEDS: LEVOTHYROXINE SODIUM 50 MCG TAB PO SCH (06:58)
[2018-06-20 07:04] LABS: INR 1.75 (0.9-1.15); Partial Thromboplastin Time 32.9 sec (23.78-33.04); Prothrombin Time 18.1 sec (9.27-12.13)
[2018-06-20] MEDS: Pro-Stat SF 30ml Vanilla PO SCH ×3 (07:50→18:00)
[2018-06-20] MEDS ORDERED: guaiFENesin 200 MG/10 ML UD PO PRN (09:45)
[2018-06-20] MEDS ORDERED: POTASSIUM CHL 20 Meq TABLET PO ONE ×2 (10:00→10:30)
[2018-06-20] MEDS ORDERED: ATOR20TA50 PO (10:05)
[2018-06-20] MEDS ORDERED: LEV50T PO (10:05)
[2018-06-20] MEDS ORDERED: PANT40T PO (10:05)
[2018-06-20] MEDS ORDERED: ERGO1CAP23 PO (10:05)
[2018-06-20] MEDS ORDERED: WARPRX PO (10:05)
[2018-06-20] MEDS ORDERED: CALCIUM ACETATE 667 MG CAP PO ONE (10:30)
[2018-06-20] MEDS: lamoTRIgine 100 MG TAB PO SCH ×2 (10:33→21:59)
[2018-06-20] MEDS: predniSONE 20 MG TAB PO SCH (10:33)
[2018-06-20] MEDS: PANTOPRAZOLE 40 MG TAB PO SCH (10:34)
[2018-06-20] MEDS: METOCLOPRAMIDE HCL 5MG/ml INJ 2ml VIAL IV PRN (12:55)
[2018-06-20] MEDS ORDERED: WARFARIN SODIUM 2.5 MG TAB PO ONE (17:00)
[2018-06-20] MEDS: ATORVASTATIN 20 MG TAB PO SCH (21:59)
[2018-06-20] MEDS: TOPIRAMATE 100 MG TAB PO SCH (22:00)
[2018-06-21 05:00] VITALS: BP 132/85
[2018-06-21] MEDS: LEVOTHYROXINE SODIUM 50 MCG TAB PO SCH (06:43)
[2018-06-21 06:59] LABS: INR 2.15 (0.9-1.15); Partial Thromboplastin Time 35.5 sec (23.78-33.04)
[2018-06-21 07:11] LABS: Albumin 0.9 g/dL (3.4-5.0); Bilirubin, Total 0.1 mg/dL (0.2-1.0); Calcium 7.3 mg/dL (8.5-10.1); Potassium 3.5 mmol/L (3.5-5.1)
[2018-06-21] MEDS: Pro-Stat SF 30ml Vanilla PO SCH ×3 (08:00→18:00)
[2018-06-21 09:00] VITALS: BP 127/82
[2018-06-21] MEDS: predniSONE 20 MG TAB PO SCH (10:02)
[2018-06-21] MEDS: lamoTRIgine 100 MG TAB PO SCH ×2 (10:02→21:31)
[2018-06-21] MEDS: PANTOPRAZOLE 40 MG TAB PO SCH (10:03)
[2018-06-21] MEDS: HYDROcodone-ACET 5/325MG TAB PO PRN ×2 (10:04→21:38)
[2018-06-21] MEDS ORDERED: POTASSIUM CHL 20 Meq TABLET PO ONE (10:15)
[2018-06-21 13:00] VITALS: BP 114/68
[2018-06-21] MEDS ORDERED: ERGOCALCIFEROL 50,000 UNIT(1.25MG) CAP PO SCH (13:45)
[2018-06-21 16:48] VITALS: BP 114/75
[2018-06-21] MEDS ORDERED: WARFARIN SODIUM 2.5 MG TAB PO ONE (17:00)
[2018-06-21 20:00] VITALS: BP 146/90
[2018-06-21] MEDS: ATORVASTATIN 20 MG TAB PO SCH (21:31)
[2018-06-21] MEDS: TOPIRAMATE 100 MG TAB PO SCH (21:31)
[2018-06-21 22:00] VITALS: BP 146/90
[2018-06-21] MEDS: METOCLOPRAMIDE HCL 5MG/ml INJ 2ml VIAL IV PRN (22:59)
[2018-06-22 05:00] VITALS: BP 136/85
[2018-06-22] MEDS: LEVOTHYROXINE SODIUM 50 MCG TAB PO SCH (06:34)
[2018-06-22 06:43] LABS: INR 1.66 (0.9-1.15); Partial Thromboplastin Time 32.9 sec (23.78-33.04); Prothrombin Time 17.3 sec (9.27-12.13)
[2018-06-22 06:47] LABS: BUN/Creatinine Ratio 19.1; Calcium 7.4 mg/dL (8.5-10.1); Potassium 3.5 mmol/L (3.5-5.1)
[2018-06-22] MEDS: Pro-Stat SF 30ml Vanilla PO SCH ×3 (08:02→17:48)
[2018-06-22 09:00] VITALS: BP 132/71
[2018-06-22] MEDS: predniSONE 20 MG TAB PO SCH (10:31)
[2018-06-22] MEDS: PANTOPRAZOLE 40 MG TAB PO SCH (10:31)
[2018-06-22] MEDS: lamoTRIgine 100 MG TAB PO SCH ×2 (10:32→21:56)
[2018-06-22] MEDS ORDERED: FUROSEMIDE 40 MG/4 ML VIAL IV SCH (11:00)
[2018-06-22] MEDS ORDERED: FUROSEMIDE 40 MG TAB PO ONE (11:15)
[2018-06-22] MEDS ORDERED: diphenhdrAMINE HCL 50 MG/1 ML VL IV PRN (11:15)
[2018-06-22] MEDS ORDERED: POTASSIUM CHL 10 Meq TABLET PO ONE (11:15)
[2018-06-22] MEDS: METOCLOPRAMIDE HCL 5MG/ml INJ 2ml VIAL IV PRN ×2 (11:48→20:45)
[2018-06-22] MEDS: FUROSEMIDE 40 MG TAB PO SCH (11:48)
[2018-06-22 13:00] VITALS: BP 130/77
[2018-06-22] MEDS ORDERED: LIDOCAINE 2% (LOCAL ANESTH.) PF 5ml SDV ONE (13:25)
[2018-06-22 16:45] VITALS: BP 109/71
[2018-06-22] MEDS ORDERED: WARFARIN SODIUM 2.5 MG TAB PO ONE (17:00)
[2018-06-22] MEDS ORDERED: WARFARIN SODIUM 10 MG TAB PO ONE (17:00)
[2018-06-22] MEDS: ATORVASTATIN 20 MG TAB PO SCH (21:56)
[2018-06-22] MEDS: TOPIRAMATE 100 MG TAB PO SCH (21:56)
[2018-06-22] MEDS: TACROLIMUS 1 MG CAP PO SCH (21:57)
[2018-06-22 22:00] VITALS: BP 122/86
[2018-06-23 05:38] VITALS: BP 117/82
[2018-06-23] MEDS: LEVOTHYROXINE SODIUM 50 MCG TAB PO SCH (06:07)
[2018-06-23] MEDS: METOCLOPRAMIDE HCL 5MG/ml INJ 2ml VIAL IV PRN (06:07)
[2018-06-23 08:05] LABS: INR 2.11 (0.9-1.15); Prothrombin Time 21.6 sec (9.27-12.13)
[2018-06-23 08:09] LABS: BUN/Creatinine Ratio 19.2; Calcium 7.3 mg/dL (8.5-10.1); Potassium 3.2 mmol/L (3.5-5.1)
[2018-06-23 09:00] VITALS: BP 138/79
[2018-06-23] MEDS: Pro-Stat SF 30ml Vanilla PO SCH ×2 (09:00→12:00)
[2018-06-23] MEDS ORDERED: WARF2.5T PO (09:25)
[2018-06-23] MEDS ORDERED: POTA-167 PO (09:25)
[2018-06-23] MEDS ORDERED: FURO40TA4 PO (09:25)
[2018-06-23] MEDS ORDERED: ESOM40CA39 PO (09:25)
[2018-06-23] MEDS ORDERED: TEMAZEPAM 15 MG CAP PO PRN (09:30)
[2018-06-23] MEDS: predniSONE 20 MG TAB PO SCH (09:30)
[2018-06-23] MEDS ORDERED: HYDROcodone-ACET 5/325MG TAB PO PRN (09:30)
[2018-06-23] MEDS: FUROSEMIDE 40 MG TAB PO SCH (09:31)
[2018-06-23] MEDS: PANTOPRAZOLE 40 MG TAB PO SCH (09:31)
[2018-06-23] MEDS: lamoTRIgine 100 MG TAB PO SCH (09:31)
[2018-06-23] MEDS: TACROLIMUS 1 MG CAP PO SCH (09:34)
[2018-06-23] MEDS ORDERED: POTASSIUM CHL 10 Meq TABLET PO SCH (10:00)
[2018-06-23 10:13] VITALS: BP 138/79
[2018-06-23] MEDS ORDERED: POTASSIUM CHL 20 Meq TABLET PO SCH (13:15)
[2018-06-23] MEDS ORDERED: WARFARIN SODIUM 2.5 MG TAB PO ONE (17:00)
== END 2018-06-23 12:00 | disposition home or self-care (01) | DRG 192 ==
LOC: ER 19:17 → TELE 19:18 → TELE-WESTW 06-05 11:55 → WEST WING 06-07 09:47
PROVIDERS: ADMIT Nurse Practitioner; ATTEND Internal Medicine
PROC: 0TB13ZX Excision of Left Kidney, Percutaneous Approach, Diagnostic (ICD-10-PCS; principal; 2018-06-08)
PROC: 5A1D70Z Performance of Urinary Filtration, Intermittent, Less than 6 Hours Per Day (ICD-10-PCS; 2018-06-10)
PROC: 0JH63XZ Insertion of Tunneled Vascular Access Device into Chest Subcutaneous Tissue and Fascia, Percutaneous Approach (ICD-10-PCS; 2018-06-10)
PROC: B2141ZZ Fluoroscopy of Right Heart using Low Osmolar Contrast (ICD-10-PCS; 2018-06-10)
PROC: 02H633Z Insertion of Infusion Device into Right Atrium, Percutaneous Approach (ICD-10-PCS; 2018-06-10)
PROC: B244ZZZ Ultrasonography of Right Heart (ICD-10-PCS; 2018-06-10)
PROC: 5A1D70Z Performance of Urinary Filtration, Intermittent, Less than 6 Hours Per Day (ICD-10-PCS; 2018-06-11)
PROC: 5A1D70Z Performance of Urinary Filtration, Intermittent, Less than 6 Hours Per Day (ICD-10-PCS; 2018-06-13)
PROC: 5A1D70Z Performance of Urinary Filtration, Intermittent, Less than 6 Hours Per Day (ICD-10-PCS; 2018-06-14)
PROC: 5A1D70Z Performance of Urinary Filtration, Intermittent, Less than 6 Hours Per Day (ICD-10-PCS; 2018-06-15)
PROC: 5A1D70Z Performance of Urinary Filtration, Intermittent, Less than 6 Hours Per Day (ICD-10-PCS; 2018-06-16)
PROC: 5A1D70Z Performance of Urinary Filtration, Intermittent, Less than 6 Hours Per Day (ICD-10-PCS; 2018-06-18)
DX: I82.401 Acute embolism and thrombosis of unspecified deep veins of right lower extremity (principal); N17.0 Acute kidney failure with tubular necrosis; E43 Unspecified severe protein-calorie malnutrition; Z68.42 Body mass index [BMI] 45.0-49.9, adult; E83.39 Other disorders of phosphorus metabolism; E66.01 Morbid (severe) obesity due to excess calories; N10 Acute pyelonephritis; N05.1 Unspecified nephritic syndrome with focal and segmental glomerular lesions; K31.84 Gastroparesis; I10 Essential (primary) hypertension; G40.909 Epilepsy, unspecified, not intractable, without status epilepticus; R31.29 Other microscopic hematuria; R79.1 Abnormal coagulation profile; D64.9 Anemia, unspecified; E03.9 Hypothyroidism, unspecified; E55.9 Vitamin D deficiency, unspecified; E78.5 Hyperlipidemia, unspecified; M06.9 Rheumatoid arthritis, unspecified; R04.0 Epistaxis; Z79.01 Long term (current) use of anticoagulants; Z79.890 Hormone replacement therapy; Z82.49 Family history of ischemic heart disease and other diseases of the circulatory system; M19.90 Unspecified osteoarthritis, unspecified site
CPT/HCPCS: 10022; 36415; 71045; 74150; 74176; 76000; 76775; 76937; 77012; 78582; 80048; 80053; 80061; 80076; 81001; 82150; 82306; 82533; 82570; 83520; 83540; 83550; 83690; 83880; 83970; 84100; 84156; 84166; 84439; 84443; 84445; 84481; 84550; 84702; 85007; 85025; 85027; 85379; 85610; 85730; 86160; 86225; 86235; 86256; 86376; 86803; 86850; 86860; 86870; 86880; 86900; 86901; 86905; 86906; 86970; 86971; 86978; 87040; 87045; 87070; 87205; 87340; 87899; 90935; 93970; 94640; 96372; 99152; A6257; J0885; J1642; J2001; J2250; J2405; J7507; Q0162

== ENCOUNTER 2018-07-14 12:28 | Emergency (ER) | payer MEDICAID ==
[~2018-07-14] VITALS: Ht 167.6 cm; Wt 104.3 kg
[~2018-07-14 12:28] MED LIST: ATOR20TA50 PO; ERGO1CAP23 PO; ESOM40CA39 PO; FURO40TA4 PO; LAMO200T34 PO; LEV50T PO; POTA-167 PO; TOPI100T29 PO; WARF2.5T PO
[2018-07-14 13:49] LABS: Basophils # (auto) 0 uL; Basophils % (auto) 0.1 % (0.0-2.0); Eosinophils # (auto) 0 uL; Eosinophils % (auto) 0.2 % (0.0-7.0); Hematocrit 37.6 % (36.0-46.0); Hemoglobin 12.8 g/dL (12.2-16.2); Lymphocytes # (auto) 2.5 uL; Lymphocytes % (auto) 16.5 % (10.0-50.0); Mean Corpuscular Hemoglobin 32.9 pg (28.0-32.0); Mean Corpuscular Volume 96.7 fL (80.0-100.0); Monocytes # (auto) 0.5 uL; Monocytes % (auto) 3.3 % (0.0-12.0); Neutrophils # (auto) 12.2 uL; Neutrophils % (auto) 79.9 % (37.0-80.0); Nucleated Red Blood Cells % 0.1 %; Platelet Count (auto) 278 10^3/uL (140-450); Red Blood Cells 3.89 10^6/uL (4.0-5.20); Red Cell Distribution Width 15.1 % (11.8-14.3); White Blood Cell 15.3 10^3/uL (4.4-10.8)
[2018-07-14 14:05] LABS: Potassium 3.1 mmol/L (3.5-5.1)
[2018-07-14 14:10] LABS: Albumin 2.4 g/dL (3.4-5.0); BUN/Creatinine Ratio 19.2; Calcium 8.1 mg/dL (8.5-10.1)
[2018-07-14 14:18] LABS: INR 4.12 (0.9-1.15)
[2018-07-14 14:22] LABS: Bilirubin, Total 0.2 mg/dL (0.2-1.0); Total Protein 5.8 g/dL (6.4-8.2)
[2018-07-14] MEDS ORDERED: POTASSIUM EFFERVESENT TAB 25 MEQ PO ONE (15:15)
[2018-07-14] MEDS ORDERED: HYDROcodone-ACET 10/325MG TAB PO ONE (15:15)
[2018-07-14 15:34] VITALS: BP 126/71
== END 2018-07-14 16:02 | disposition home or self-care (01) ==
LOC: ER 12:40
DX: M06.862 Other specified rheumatoid arthritis, left knee (principal); M06.861 Other specified rheumatoid arthritis, right knee; E87.6 Hypokalemia; E44.0 Moderate protein-calorie malnutrition; Z68.37 Body mass index [BMI] 37.0-37.9, adult; Z86.718 Personal history of other venous thrombosis and embolism
CPT/HCPCS: 36415; 80053; 85025; 85379; 85610; 85730; 93005; 93970